=== PATIENT | female | born 1935 | race Caucasian/White ===

== ENCOUNTER 2017-02-18 07:00 | Inpatient (IN) | payer OTHER, MEDICARE ==
[~2017-02-18] VITALS: Ht 152.4 cm; Wt 53.1 kg
[2017-03-25] MEDS ORDERED: AMLODIPINE BESYL5 M1 PO (16:13)
[2017-03-25] MEDS ORDERED: CYMBALTA60 M1 PO (16:14)
[2017-03-25] MEDS ORDERED: FOSAMAX70 M1 PO (16:14)
--- NOTE | 2017-03-27 12:17 | Admission Core Measures ---
Admission Meds I reviewed the following Meds: Current Medications Sig/Giles Start time Last Medication Dose Stop Time Status Admin Acetaminophen 975 MG ONCE 03/27 NR (Tylenol) 03/27 2359 Cefazolin Sodium 2,000 MG ONCE 03/27 NR (Kefzol-Ancef Inj) 03/27 2359 Oxycodone HCl 10 MG ONCE 03/27 NR (Roxicodone) 03/27 2359 Acute Coronary Syndrome Inclusion Criteria ACS Diagnosis No Inpatient Core Measures LDL Reminder: If No, please order W/I first 24hr of stay Congestive Heart Failure Inclusion Criteria CHF Diagnosis No Cerebrovascular accident Inclusion Criteria CVA/TIA Diagnosis No Inpatient Core Measures Bedside Swallow Eval Reminder: If BSE failed, place ST order Antithrombotic Reminder: Order Antithrombotic Medication by end of day 2 Antithrombotic Reminder: Document Reason Antithrombotic Not ordered by end of day 2 AFIB/Flutter Reminder: If Present, add to problem list AFIB/Flutter Reminder: Order Anticoag Medication for pts with AFIB/Flutter Atherosclerosis Reminder: If Present, add to problem list LDL Reminder: If No, please order W/I first 24hr of stay PT Order Reminder: If No, please order Venous thromboembolism Inpatient Core Measures VTE Risk Factors: Age > 40, Surgery No [facility] VTE prophylaxis d/t No contraindications No VTE Pharm Prophylaxis d/t No contraindications Inclusion Criteria - Per Current guidelines, there needs to be overlap - treatment for the first 5 days of Warfarin therapy. - Parenteral Anticoagulation (IV or SC) needs to be - given along with Warfarin therapy. VTE Diagnosis No VTE Type NONE VTE Confirmed by (Test) NONE Problem List As ranked by this Provider includes Assessment & Plan 1. S/P total hip arthroplasty HOME MEDS Home Med List Alendronate Sodium (Fosamax) 70 MG TABLET 1 TAB PO QW OSTEOPOROSIS (Reported) Amlodipine Besylate 5 MG TABLET 1 TAB PO DAILY HTN (Reported) Duloxetine HCl (Cymbalta) 60 MG CAPSULE.DR 1 CAP PO DAILY PAIN (Reported)
[2017-03-27] MEDS ORDERED: ASPIRIN325 M2 PO (12:28)
[2017-03-27] MEDS ORDERED: PERCOCET 5-3251 EACH PO (12:28)
[2017-03-27] MEDS ORDERED: COLACE100 M1 PO (12:29)
[2017-03-27] MEDS ORDERED: MIRALAX17 G1 PO (12:29)
--- NOTE | 2017-03-27 12:33 | Patient Discharge Instructions ---
Discharge Instructions General Discharge Information You were seen/treated for: Right hip degenerative joint disease You had these procedures: Removal of previous ORIF and conversion to right total hip arthroplasty Watch for these problems: Significantly increased pain, difficulty with ambulation, or temperatures over 101 Increased redness or drainage from incision No bath, but you may shower: Yes Other wound care: Daily dry dressing change Special Instructions: See printed information booklet Diet Continue normal diet: Yes Activity Activity Self Limited: Yes Other activity limits: Ambulate using a walker as instructed by physical therapy No driving or operating heavy machinery until off all pain medications and okay with your surgeon Acute Coronary Syndrome Inclusion Criteria At DC or during hospital stay patient has or had the following: ACS DIAGNOSIS No Discharge Core Measures Meds if any: Prescribed or Continued at Discharge Meds if any: NOT Prescribed or Continued at Discharge Congestive Heart Failure Inclusion Criteria At DC or during hospital stay patient has or had the following: CHF DIAGNOSIS No Discharge Core Measures Meds if any: Prescribed or Continued at Discharge Meds if any: NOT Prescribed or Continued at Discharge Cerebrovascular accident Inclusion Criteria At DC or during hospital stay patient has or had the following: CVA/TIA Diagnosis No Discharge Core Measures Meds if any: Prescribed or Continued at Discharge Meds if any: NOT Prescribed or Continued at Discharge Venous thromboembolism Inclusion Criteria VTE Diagnosis No VTE Type NONE VTE Confirmed by (Test) NONE Discharge Core Measures - Per Current guidelines, there needs to be overlap - treatment for the first 5 days of Warfarin therapy. - If discharged on Warfarin prior to 5 days of - overlap therapy, the patient will need to be - assessed for post discharge needs including - *Post discharge parental anticoagulation - *Warfarin and/or parental anticoagulation education - *Follow up date to check INR post discharge At least 5 days overlap therapy as Inpatient No Meds if any: Prescribed or Continued at Discharge Note: Overlap Therapy is Warfarin and Anticoagulant Meds if any: NOT Prescribed or Continued at Discharge
--- NOTE | 2017-03-27 12:37 | Surgical Discharge Summary ---
Visit Information Visit Dates Admission Date: 03/27/17 Discharge Date: 03/30/17 History of Present Illness Chief Complaint: Right hip pain/degenerative joint disease Surgical History Pertinent Surgical History: PRIOR RT HIP ORIF Review of Systems: Refer to admitting H&P with regards to past medical history and review of systems Hospital Course Course Attending Physician: ANUSHKA KELLY MD Primary Care Phys[facility]: The patient was admitted on 03/27/2017. Later that day she was brought to the operating theater where she underwent a removal of previous hardware and the right total hip arthroplasty. Postoperative patient progressed as expected, her pain was well managed, and she worked with physical therapy. She was transfused 1 unit prbc on post-op day#1 for acute yanna-op blood loss anemia, which she was relatively asymptomatic with, and improved the next day after the transfusion. Patient was started on aspirin twice daily for blood clot risk reduction. Laboratory studies and vital signs were stable. The patient was discharged with an uneventful hospital course to a short term rehab facility on post-op day#3. Allergies: Coded Allergies: No Known Allergies (03/25/17) Significant Procedures: Removal of previous right hip hardware and right hip total arthroplasty Disposition Summary Disposition Principal Diagnosis: Degenerative joint disease and right hip pain Additional Diagnosis: acute yanna-operative blood loss anemia, which resolved after transfusing 1u prbc on post-op day#2 Discharge Disposition: SNF Discharge Instructions General Discharge Information Code Status: Full Code Patient's Diet: Regular diet Patient's Activity: Weightbearing as tolerated Follow-Up Instructions/Appts: Refer to discharge instructions Call the office to be seen in 6 weeks or earlier if needed Medications at Discharge Discharge Medications: Continue taking these medications: Amlodipine Besylate (Amlodipine Besylate) 5 MG TABLET 1 Tablet ORAL DAILY Duloxetine HCl (Cymbalta) 60 MG CAPSULE.DR 1 Capsule ORAL DAILY Alendronate Sodium (Fosamax) 70 MG TABLET 1 Tablet ORAL Once a Week Instructions: in the morning, at least 30 minutes before the first food, beverage, or medication of the day Comments: EVERY SATURDAY Start taking the following new medications: Oxycodone HCl/Acetaminophen (Percocet 5-325 MG Tablet) 5 MG-325 MG TABLET 1-2 Tablet ORAL EVERY 4-6 HOURS as needed for PAIN Qty = 1 No Refills Aspirin (Aspirin*) 325 MG TABLET 1 Tablet ORAL TWICE DAILY Qty = 1 No Refills Instructions: TAKE FOR 28 DAYS Docusate Sodium (Colace) 100 MG CAPSULE 1 Capsule ORAL TWICE DAILY Qty = 1 No Refills Instructions: TAKE FOR 7 DAYS Polyethylene Glycol 3350 (Miralax) 17 GRAM POWD.PACK 1 Packet ORAL DAILY Qty = 1 No Refills Instructions: dissolve in water TAKE FOR 7 DAYS Copies To: JANELLE GUTIERREZ,KINA
--- NOTE | 2017-03-27 15:38 | Operative Report ---
Operative/Inv Procedure Report Surgery Date: 03/27/17 Name of Procedure: Right total hip conversion Pre-Operative Diagnosis: Failed right hip ORIF Post-Operative Diagnosis: Same Estimated Blood Loss: 500 Surgeon/Cath Lab Nurse: ROBIN GUTIERREZ,ANUSHKA Peter Anesthesia: block Operative/Procedure Note Note: Description of procedure: The patient was taken to the operating room and positively identified. After induction of spinal anesthesia and administration of appropriate preoperative antibiotics she was positioned supine on the operating room table and all bony prominences well-padded. The right lower extremity was then prepped and draped in the usual sterile fashion. A modified Ervin approach was made to the right hip. This was carried down through skin and subcutaneous tissue to the level of the fascia. Meticulous hemostasis was maintained with Bovie cautery. The fascia was opened sharply exposing the gluteus medius muscle. The anterior one third of gluteus medius was taken down off the greater trochanter with use of Bovie cautery. There was abundant heterotopic ossification located anterior to the trochanteric region. This was carefully dissected and removed with the use of an osteotome and a rongeur. Exposure continued until the femoral neck and head could be seen anteriorly. Attention was then turned to the retained [employer] IMHS nail. The proximal aspect of the nail had overgrown. Utilizing a small curet the tip of the nail was identified. Utilizing the proper [employer] instrument the locking bolt was unscrewed. At this point attention was then turned to the lag screw. The lateral end of the lag screw head completely overgrown with bone and could not be found. The hip was dislocated and the tip of the lag screw was identified in the femoral head. A Steinmann pin was then passed retrograde down the screw and tapped out the lateral cortex of the femur. The pin was then identified laterally and the cortical bone that had overgrown the end of the screw was removed with the use of a rongeur and a high-speed luis. The lag screw was then backed out with the appropriate instrument. The distal locking screw was identified without difficulty and removed. Bone was cleared from the tip of the trochanter and the nail itself was backed out. Attention was then turned to the acetabulum. After appropriate placement of retractors the acetabulum was exposed. Soft tissue was cleared from the acetabular margin and notch. Overhanging osteophytes removed and the teardrop was exposed. The acetabulum was then sequentially reamed to accept a 54 mm Lucas hemispherical solid back shell. This was impacted into place in appropriate position and fitted with a 36 mm 0 Trident X3 polyethylene insert. Attention was then turned to the proximal femur. Due to abundant heterotopic ossification the proximal femur was trimmed with the use of a oscillating saw. The canal was then again located and bone cleared laterally at the tip of the trochanter. The canal was then prepared for a [place] holiness modular conical distal stem. It was reamed up to a size 18 mm. A Lucas holiness modular 155 mm x 18 mm conical distal stem was then impacted into place. The proximal femur was then prepared to accept a 21 mm +10 cone body. This was trialed for leg length and stability. The trial proximal body was removed and the final body was impacted into place. The torque bolt was tightened to specification. The trunnion was cleaned and fit with a 36 mm +0 Biolox delta ceramic femoral head. The hip was reduced and then copiously irrigated with sterile saline. A medium Hemovac drain was left in a subfascial position. The abductor mechanism and fascial layer were closed with interrupted #1 Vicryl sutures. The skin is approximated with interrupted 2-0 Vicryl and closed with altaf. A sterile dressing was applied the patient was awakened and taken to recovery room in satisfactory condition.
--- NOTE | 2017-03-27 16:17 | RADIOLOGY REPORT ---
EXAMINATION: XR HIP, RIGHT CLINICAL INFORMATION: Status post ORIF, right hip replacement COMPARISON: None TECHNIQUE: Two views of the right hip. FINDINGS: Acetabular and femoral component of the hip replacement in position. Surgical drain in place. Air in the soft tissues from the surgery. Surgical skin clips at the lateral side of the hip. IMPRESSION: Status post right hip replacement.
--- NOTE | 2017-03-27 16:37 | NUR ---
PHYSICAL THERAPY: PATIENT HAS NOT YET ARRIVED TO THE FLOOR, SPOKE WITH [facility] WHO STATES SHE IS STILL IN THE [facility] AT THIS TIME, ANTICIPATING TO MOVE TO ROOM 219-1; SPOKE WITH RECIEVING ON RN TO NOTIFY THEM P.T. WILL NOT BE HERE WHEN PATIENT ARRIVES; WILL BE SEEN TOMORROW A.M.
[2017-03-27 17:10] VITALS: BP 120/58
--- NOTE | 2017-03-27 17:32 | PN- Orthopedic ---
Subjective Subjective: POC S/P REMOVAL OF HARDWARE RIGHT HIP/RIGHT SHEMAR NO PAIN COMPLAITNS NOW DENEIS CP, SOB, NO N+V SITTING UP IN BED SLOW TO RESPOND, LIKELY DUE TO CLEARING ANESTHESIA Objective Vital Signs and I&Os Intake & Output 03/27 1600 03/27 0800 03/27 0000 03/26 1600 03/26 0803/26 0000 Intake Total Output Total Balance Patient 117 lb Weight Physical Exam: CV: RRR LUNGS: CLEAR ABD: SOFT, +BS EXT: THIGH SOFT DRSG DRY DISTAL CMS INTACT NEHA: SEROSANGUINOUJS DRAINAGE ALVA: CLEAR URINE Assessment/Plan Assessment/Plan ORTHO STABLE PLAN BEDREST TONIGHT ALVA TO GRAVITY ADVANCE DIET TOLERATED BOWEL REGIME ASA BID FOR DVT PROPHYLAXIS SNF PLANNING Core Measures/Miscellaneous Venous Thromboembolism VTE Risk Factors: Age > 40, Surgery VTE Contraindications: No Contraindications VTE Diagnosis: No VTE Type: NONE VTE Confirmed by (Test): NONE Beta Eder Is Beta Eder a Home Med? No Antibiotics Is Patient on Antibiotics? Yes If Yes: prophylaxis
[2017-03-27 19:05] VITALS: BP 100/60
[2017-03-27 21:06] VITALS: BP 102/60
[2017-03-27 22:48] VITALS: BP 102/60
[2017-03-28 03:01] VITALS: BP 118/60
[2017-03-28 06:06] VITALS: BP 100/58
--- NOTE | 2017-03-28 07:41 | PN- Orthopedic ---
Subjective Subjective: Pt. states she is comfortable. Was receiving IV Tylenol Taking liquids without nausea. Objective Vital Signs and I&Os Vital Signs Date Time Temp Pulse Resp B/P B/P Pulse O2 O2 Flow FiO2 Mean Ox Delivery Rate 03/28 0606 98.1 80 20 100/58 96 Room Air 03/28 0301 98.7 84 20 118/60 94 Room Air 03/27 2248 97.9 79 20 102/60 96 Room Air 03/27 2106 98.0 69 20 102/60 95 Room Air 03/27 2019 Room Air Room Air 03/27 1905 98.1 75 20 100/60 93 Room Air 03/27 1752 Room Air Room Air 03/27 1710 97.6 73 16 120/58 92 Room Air Intake & Output 03/28 0800 03/28 0000 03/27 1600 03/27 0800 03/27 0000 03/26 1600 Intake Total 960 1115 Output Total 430 775 Balance 530 340 Intake, IV 720 375 Intake, Oral 240 740 Output, 80 125 Drainage Output, Urine 350 650 Patient 117 lb Weight Weight Reported by Patient Measurement Method Alert, orineted, appropriate, no distress Lungs clear bilat. Heart regular Abdomen soft, benign R hip with dressing over D/C/I. Hemovac in place, draining serosang. fluid, recorded as 80 cc over night Intact neurovascular check to RLE, good distal perfusion and sensation. Assessment/Plan Assessment/Plan s/p R total hip conversion for failed R hip ORIF POD#1 Stable hemodynamics, drain output as expected. Making adequate urine, will hep lock IVF R Hip exam as expected, no signs of infection,neurovascular intact Good pain control so far with IV Tylenol.Will add PO Tylenol for pain once completed IV Tylenol.Has Oxycodone available prn for pain. Awaiting mobilization with PT Labs are pending for this morning, will follow results. Anticipate d/c to STR in 2 to 3 days. Core Measures/Miscellaneous Venous Thromboembolism VTE Risk Factors: Age > 40, Surgery VTE Contraindications: No Contraindications VTE Diagnosis: No VTE Type: NONE VTE Confirmed by (Test): NONE Beta Eder Is Beta Eder a Home Med? No Antibiotics Is Patient on Antibiotics? Yes If Yes: prophylaxis
[2017-03-28 07:55] LABS: ABSOLUTE BASOPHIL COUNT 0 /CUMM (0.0-0.2); ABSOLUTE EOSINOPHIL COUNT 0 /CUMM (0.0-0.7); ABSOLUTE GRANULOCYTE CT 8.5 /CUMM (1.4-6.5); ABSOLUTE LYMPH COUNT 0.8 /CUMM (1.2-3.4); ABSOLUTE MONOCYTE COUNT 0.3 /CUMM (0.10-0.60); BASOPHIL % 0 % (0.0-2.0); EOSINOPHIL % 0.3 % (0-5); HEMATOCRIT 22.6 % (37-47); MEAN CORPUSCULAR HGB 31.4 PG (27.0-31.0); MEAN CORPUSCULAR HGB CONC 34.1 G/DL (33.0-37.0); MEAN CORPUSCULAR VOLUME 92.2 FL (81.0-99.0); MEAN PLATELET VOLUME 8.3 FL (7.4-10.4); PLATELET COUNT 172 /CUMM (130-400); RBC DISTRIBUTION WIDTH 15.2 % (11.5-14.5); RED BLOOD CELL CT 2.45 /CUMM (4.20-5.40); WHITE BLOOD CELL COUNT 9.6 /CUMM (4.8-10.8)
[2017-03-28 08:41] LABS: GRANULOCYTE % 88.1 % (42.2-75.2)
--- NOTE | 2017-03-28 10:48 | NUR ---
NURSING NOTE: PATIENT BLOOD WORK CAME BACK, H&H 7&22.4. SURGICAL PA NOTIFIED THIS RN THAT PATIENT WILL NOT BE TRANSFUSED AT THIS TIME DUE TO PATIENT HAVING CHRONIC ANEMIA. THIS RN WILL MONITOR FOR ANY S/S OF CHANGE. PATIENT'S VS WILL BE MONITORED Q4. WILL CONTINUE TO MONITOR.
[2017-03-28 11:36] VITALS: BP 112/58
[2017-03-28 14:22] VITALS: BP 112/60
[2017-03-28 16:01] VITALS: BP 140/64
--- NOTE | 2017-03-28 16:36 | NUR ---
NURSING NOTE: PATIENT NOTED TO BE MUCH MORE CONFUSED THAN THIS AM. PATIENT TRYING TO PULL ALVA CATHETER OUT SO SHE CAN PEE. TRYING TO PULL HEMOVAC OUT BECAUSE SHE FEELS THAT WILL HELP HER PEE. SURGICAL PA SAIRA OLMSTEAD NOTIFIED OF CHANGE IN MENTAL STATUS. VSS. STAT BLOODWORK TO BE DRAWN. WILL CONTINUE TO MONITOR.
--- NOTE | 2017-03-28 16:40 | NUR ---
NURSING NOTE: MST CALLED THIS RN TO THE PATIENT'S ROOM, WITHIN MINUTES OF THIS RN CALLING THE SURGICAL PA ABOUT MENTAL STATUS CHANGE, PATIENT PULLED HEMOVAC OUT OF SURGICAL SITE TO RIGHT HIP. DRSG STILL IN PLACE CDI. BLOOD WORK CONTINUING TO BE DRAWN. PATIENT RE-ORIENTED TO TIME AND PLACE. PATIENT REPOSITIONED IN BED. SURGICAL PA NOTIFIED OF HEMOVAC BEING PULLED OUT. WILL CONTINUE TO MONITOR.
[2017-03-28 17:39] LABS: ABSOLUTE BASOPHIL COUNT 0 /CUMM (0.0-0.2); ABSOLUTE EOSINOPHIL COUNT 0 /CUMM (0.0-0.7); ABSOLUTE LYMPH COUNT 1.9 /CUMM (1.2-3.4); BASOPHIL % 0.1 % (0.0-2.0); GRANULOCYTE % 74.7 % (42.2-75.2)
[2017-03-28 17:46] LABS: ABSOLUTE MONOCYTE COUNT 0.5 /CUMM (0.10-0.60); EOSINOPHIL % 0.2 % (0-5); HEMATOCRIT 21.8 % (37-47); MEAN CORPUSCULAR HGB 30.9 PG (27.0-31.0); MEAN CORPUSCULAR HGB CONC 33.6 G/DL (33.0-37.0); MEAN CORPUSCULAR VOLUME 92.1 FL (81.0-99.0); PLATELET COUNT 169 /CUMM (130-400); RED BLOOD CELL CT 2.37 /CUMM (4.20-5.40); WHITE BLOOD CELL COUNT 9.4 /CUMM (4.8-10.8)
--- NOTE | 2017-03-28 18:00 | NUR ---
YNURSING NOTE: FAMILY UPDATED AND NOTIFIED ABOUT PATIENT'S NEW CONFUSION, SITTER AND BLOOD TRANSFUSION. FAMILY UNDERSTANDING AND APPRECIATIVE. THIS RN ALSO SPOKE WITH SURIGICAL PA ABOUT PATIENT REMOVING THE HEMOVAC, PA STATED IT WAS OK AND TO JUST WATCH THE DRESSING FOR EXCESSIVE SATURATION. KEEP EXTRA PRESSURE ON IT.
[2017-03-28 22:34] VITALS: BP 122/72
[2017-03-29 07:42] VITALS: BP 124/69
[2017-03-29 08:03] LABS: ABSOLUTE BASOPHIL COUNT 0 /CUMM (0.0-0.2); ABSOLUTE EOSINOPHIL COUNT 0 /CUMM (0.0-0.7); ABSOLUTE LYMPH COUNT 1.8 /CUMM (1.2-3.4); ABSOLUTE MONOCYTE COUNT 0.5 /CUMM (0.10-0.60); BASOPHIL % 0.2 % (0.0-2.0); EOSINOPHIL % 0.1 % (0-5); GRANULOCYTE % 81.4 % (42.2-75.2); MEAN CORPUSCULAR HGB 30.8 PG (27.0-31.0); MEAN CORPUSCULAR HGB CONC 34.2 G/DL (33.0-37.0); MEAN CORPUSCULAR VOLUME 90.1 FL (81.0-99.0); MEAN PLATELET VOLUME 8.1 FL (7.4-10.4); PLATELET COUNT 174 /CUMM (130-400); RBC DISTRIBUTION WIDTH 15.8 % (11.5-14.5); WHITE BLOOD CELL COUNT 12.2 /CUMM (4.8-10.8)
[2017-03-29 08:30] LABS: RED BLOOD CELL CT 3.11 /CUMM (4.20-5.40)
--- NOTE | 2017-03-29 09:07 | PN- Orthopedic ---
Subjective Subjective: No complaints. Transfused 1u prbc yesterday, which she recalls but denies symptoms. No dizziness, no shortness of breath, and no chest pains. She was somewhat confused yesterday, requiring a sitter, but appears to be better this morning. She has not been receiving narcotics. Tolerating diet. No nausea. Voiding well. Unsure of last bm. Anticipates discharge to rehab tomorrow. Objective Vital Signs and I&Os Vital Signs Date Time Temp Pulse Resp B/P B/P Pulse O2 O2 Flow FiO2 Mean Ox Delivery Rate 03/29 0742 98.6 92 18 124/69 96 Room Air 03/28 2234 98.6 92 18 122/72 96 Room Air 03/28 1651 96 Room Air 03/28 1601 97.4 90 18 140/64 98 Room Air 03/28 1457 Room Air Room Air 03/28 1422 98.0 86 20 112/60 96 Room Air 03/28 1136 98.1 79 20 112/58 98 Room Air Intake & Output 03/29 1600 03/29 0800 03/29 0000 03/28 1600 03/28 0800 03/28 0000 Intake Total 240 131 375 6441 Output Total 1400 930 300 430 775 Balance -1160 -930 600 530 340 Intake, IV 720 375 Intake, Oral 240 900 240 740 Output, 130 80 125 Drainage Output, Urine 1400 800 300 350 650 Patient 117 lb Weight Weight Reported by Patient Measurement Method Physical Exam: General - alert. oriented to person, place, and situation. "today is march 26", "i had surgery 1 week ago". Lungs - clear bilaterally. no w/r/r. Cardiac - s1s2 Abdomen - soft. nondistended. nontender. Extremities - warm bilaterally. right hip dressing changed. incision well approximated with altaf. no hematoma or drains. no erythema or exudates. Current Medications: Current Medications Sig/Giles Start time Last Medication Dose Route Stop Time Status Admin Acetaminophen 325 MG Q6P PRN 03/28 0900 AC PO Acetaminophen 1,000 MG Q8H 03/28 0300 DC 03/28 IV 03/28 1101 1057 Alendronate Sodium 70 MG QSAT 03/30 0700 AC PO Amlodipine Besylate 5 MG DAILY 03/28 1000 AC 03/28 PO 0844 Aspirin 325 MG BID 03/270 AC 03/28 PO 2036 Docusate Sodium 100 MG BID 03/28 2200 AC 03/28 PO 203 Docusate Sodium 100 MG DAILY 03/28 1000 DC 03/28 PO 0844 Duloxetine HCl 60 MG DAILY 03/28 1000 AC 03/28 PO 0844 Morphine Sulfate 2 MG Q3P PRN 03/27 1730 DC IV Omeprazole 20 MG DAILY AC 03/28 0700 AC 03/29 PO 0528 Ondansetron HCl 4 MG Q6P PRN 03/27 1730 AC IV Oxycodone HCl 5 MG Q4P PRN 03/27 1730 DC PO Oxycodone HCl 10 MG Q4P PRN 03/27 1730 DC PO Polyethylene Glycol 17 GM DAILY 03/28 1000 AC 03/28 PO 0844 Tramadol HCl 50 MG Q4P PRN 03/28 1800 AC PO Results Last 48 Hours of Labs: Laboratory Tests 03/29 03/28 0726 1700 Chemistry Sodium (137 - 145 mmol/L) 138 133 L Potassium (3.5 - 5.1 mmol/L) 3.8 4.3 Chloride (98 - 107 mmol/L) 105 101 Carbon Dioxide (22 - 30 mmol/L) 24 23 Anion Gap (5 - 16) 9 9 BUN (7 - 17 mg/dL) 15 22 H Creatinine (0.5 - 1.0 mg/dL) 0.7 0.9 Estimated GFR (>60 ml/min) > 60 60 BUN/Creatinine Ratio (7 - 25 %) 21.4 24.4 Hematology CBC w Diff NO MAN DIFF REQ NO MAN DIFF REQ WBC (4.8 - 10.8 /CUMM) 12.2 H 9.4 RBC (4.20 - 5.40 /CUMM) 3.11 L 2.37 L Hgb (12.0 - 16.0 G/DL) 9.6 L 7.3 *L Hct (37 - 47 %) 28.0 L 21.8 L MCV (81.0 - 99.0 FL) 90.1 92.1 MCH (27.0 - 31.0 PG) 30.8 30.9 RDW (11.5 - 14.5 %) 15.8 H 15.0 H Plt Count (130 - 400 /CUMM) 174 169 MPV (7.4 - 10.4 FL) 8.1 8.0 Gran % (42.2 - 75.2 %) 81.4 H 74.7 Lymphocytes % (20.5 - 51.1 %) 14.4 L 20.0 L Monocytes % (1.7 - 9.3 %) 3.9 5.0 Eosinophils % (0 - 5 %) 0.1 0.2 Basophils % (0.0 - 2.0 %) 0.2 0.1 Absolute Granulocytes (1.4 - 6.5 /CUMM) 10.0 H 7.0 H Absolute Lymphocytes (1.2 - 3.4 /CUMM) 1.8 1.9 Absolute Monocytes (0.10 - 0.60 /CUMM) 0.5 0.5 Absolute Eosinophils (0.0 - 0.7 /CUMM) 0 0 Absolute Basophils (0.0 - 0.2 /CUMM) 0 0 PUBS MCHC (33.0 - 37.0 G/DL) 34.2 33.6 05/11 0649 Chemistry Sodium (137 - 145 mmol/L) 134 L Potassium (3.5 - 5.1 mmol/L) 4.7 Chloride (98 - 107 mmol/L) 101 Carbon Dioxide (22 - 30 mmol/L) 22 Anion Gap (5 - 16) 11 BUN (7 - 17 mg/dL) 19 H Creatinine (0.5 - 1.0 mg/dL) 0.8 Estimated GFR (>60 ml/min) > 60 BUN/Creatinine Ratio (7 - 25 %) 23.8 Hematology CBC w Diff NO MAN DIFF REQ WBC (4.8 - 10.8 /CUMM) 9.6 RBC (4.20 - 5.40 /CUMM) 2.45 L Hgb (12.0 - 16.0 G/DL) 7.7 L Hct (37 - 47 %) 22.6 L MCV (81.0 - 99.0 FL) 92.2 MCH (27.0 - 31.0 PG) 31.4 H RDW (11.5 - 14.5 %) 15.2 H Plt Count (130 - 400 /CUMM) 172 MPV (7.4 - 10.4 FL) 8.3 Gran % (42.2 - 75.2 %) 88.1 H Lymphocytes % (20.5 - 51.1 %) 8.8 L Monocytes % (1.7 - 9.3 %) 2.8 Eosinophils % (0 - 5 %) 0.3 Basophils % (0.0 - 2.0 %) 0 L Absolute Granulocytes (1.4 - 6.5 /CUMM) 8.5 H Absolute Lymphocytes (1.2 - 3.4 /CUMM) 0.8 L Absolute Monocytes (0.10 - 0.60 /CUMM) 0.3 Absolute Eosinophils (0.0 - 0.7 /CUMM) 0 Absolute Basophils (0.0 - 0.2 /CUMM) 0 PUBS MCHC (33.0 - 37.0 G/DL) 34.1 Assessment/Plan Assessment/Plan This 82 year old white female with hx htn, oa, hx tia, depression, anemia, is POD#2 s/p right total hip conversion from failed right hip ORIF, s/p transfusion of 1u prbc yesterday for acute yanna-op blood loss anemia with associated confusion that appears to be improved today tolerating diet ultram / tylenol prn pain dressing changed asa bid f/u labs continue PT likely d/c to STR tomorrow will d/w Core Measures/Miscellaneous Venous Thromboembolism VTE Risk Factors: Age > 40, Surgery VTE Contraindications: No Contraindications VTE Diagnosis: No VTE Type: NONE VTE Confirmed by (Test): NONE Beta Eder Is Beta Eder a Home Med? No Antibiotics Is Patient on Antibiotics? Yes If Yes: prophylaxis
[2017-03-29 12:00] VITALS: BP 102/60
[2017-03-29 15:09] VITALS: BP 118/70
[2017-03-29 22:35] VITALS: BP 104/60
[2017-03-30 02:16] VITALS: BP 118/60
[2017-03-30 07:23] VITALS: BP 122/68
--- NOTE | 2017-03-30 08:40 | PN- Orthopedic ---
Subjective Subjective: COMFORTABLE THIS AM SITTING UP IN BED EATING BREAKFAST DENIES CP, SOB, NO N+V WITH DIET Objective Vital Signs and I&Os Vital Signs Date Time Temp Pulse Resp B/P B/P Pulse O2 O2 Flow FiO2 Mean Ox Delivery Rate 03/30 0829 96 Room Air 03/30 0723 97.9 80 18 122/68 98 Room Air 03/30 0216 97.9 80 18 118/60 96 Room Air 03/29 2235 98.2 85 20 104/60 94 Room Air 03/29 2027 99 Room Air 03/29 1509 97.9 94 18 118/70 96 Room Air 03/29 1200 9.4 86 20 102/60 96 Room Air 03/29 1149 92 124/69 03/29 0921 98 Room Air Room Air Intake & Output 03/30 1600 03/30 0800 03/30 0000 03/29 1600 03/29 0800 03/29 0000 Intake Total 120 610 240 Output Total 250 931 758 5239 930 Balance -250 -280 -190 -1160 -930 Intake, IV 10 Intake, Oral 120 600 240 Number 0 Bowel Movements Output, 130 Drainage Output, Urine 250 065 895 9263 800 Physical Exam: CV: RRR LUNGS: CLEAR ABD: SOFT, +BS EXT: THIGH SOFT NO CALF TENDERNESS BILAT DISTAL CMS GROSSLY INTACT Assessment/Plan Assessment/Plan ORTHO STABLE PLAN SNF AFTER BM ELIQUIS BID FOR DVT PROPHYLAXIS Core Measures/Miscellaneous Venous Thromboembolism VTE Risk Factors: Age > 40, Surgery VTE Contraindications: No Contraindications VTE Diagnosis: No VTE Type: NONE VTE Confirmed by (Test): NONE Beta Eder Is Beta Eder a Home Med? No Antibiotics Is Patient on Antibiotics? Yes If Yes: prophylaxis
[2017-03-30 08:41] LABS: ABSOLUTE BASOPHIL COUNT 0 /CUMM (0.0-0.2); ABSOLUTE EOSINOPHIL COUNT 0.1 /CUMM (0.0-0.7); ABSOLUTE GRANULOCYTE CT 5.6 /CUMM (1.4-6.5); ABSOLUTE LYMPH COUNT 1.4 /CUMM (1.2-3.4); ABSOLUTE MONOCYTE COUNT 0.4 /CUMM (0.10-0.60); BASOPHIL % 0.2 % (0.0-2.0); GRANULOCYTE % 74.2 % (42.2-75.2); HEMATOCRIT 26.5 % (37-47); MEAN CORPUSCULAR HGB 30.9 PG (27.0-31.0); MEAN PLATELET VOLUME 8.4 FL (7.4-10.4); PLATELET COUNT 163 /CUMM (130-400); RBC DISTRIBUTION WIDTH 16.3 % (11.5-14.5); RED BLOOD CELL CT 2.91 /CUMM (4.20-5.40); WHITE BLOOD CELL COUNT 7.5 /CUMM (4.8-10.8)
[2017-03-30 12:55] VITALS: BP 122/68
== END 2017-03-30 13:45 | DRG 470 ==
LOC: 2NB 03-27 01:38 → SDA 03-27 01:38 → ENRESERV 03-27 15:36 → CMPBEDREQ 03-27 15:52 → 2NB 03-27 16:53 → ENPENDDIS 03-30 10:27 → 2NB 03-30 13:45
PROVIDERS: Physician Assistant; Physician Assistant Surgical; ADMIT Orthopaedic Surgery
PROC: 0QP604Z Removal of Internal Fixation Device from Right Upper Femur, Open Approach (ICD-10-PCS; principal; 2017-03-27)
PROC: 0SR904A Replacement of Right Hip Joint with Ceramic on Polyethylene Synthetic Substitute, Uncemented, Open Approach (ICD-10-PCS; principal; 2017-03-27)
PROC: 30233N1 Transfusion of Nonautologous Red Blood Cells into Peripheral Vein, Percutaneous Approach (ICD-10-PCS; 2017-03-28)
DX: M16.11 Unilateral primary osteoarthritis, right hip (principal); D62 Acute posthemorrhagic anemia; I10 Essential (primary) hypertension; Z87.81 Personal history of (healed) traumatic fracture; Z87.891 Personal history of nicotine dependence; Z85.3 Personal history of malignant neoplasm of breast; Z86.73 Personal history of transient ischemic attack (TIA), and cerebral infarction without residual deficits
CPT/HCPCS: 2NSBP; 36415; 73502-RT; 82436; 86920; 88304; 97110-GO; 97116-GO; 97161-GP; 97530-GO; J0131; J0690; J2405; J7042; P9016

== ENCOUNTER 2017-04-17 12:25 | Emergency (ER) | payer OTHER, MEDICARE ==
[~2017-04-17] VITALS: Ht 157.5 cm; Wt 55.3 kg
[~2017-04-17 12:25] MED LIST: AMLODIPINE BESYL5 M1 PO; ASPIRIN325 M2 PO; COLACE100 M1 PO; CYMBALTA60 M1 PO; FOSAMAX70 M1 PO; MIRALAX17 G1 PO; PERCOCET 5-3251 EACH PO
--- NOTE | 2017-04-17 12:41 | ED UPPER/LOWER EXTREMITY COMPL ---
History of Present Illness General Chief Complaint: Fall Stated Complaint: "PER EMS FALL" Source: patient, family Exam Limitations: no limitations Vital Signs & Intake/Output Vital Signs & Intake/Output Vital Signs Date Time Temp Pulse Resp B/P B/P Pulse O2 O2 Flow FiO2 Mean Ox Delivery Rate 04/17 1500 97.4 78 18 122/59 95 Room Air 04/17 1334 97 Room Air 04/17 1239 96.5 81 18 121/61 97 Room Air ED Intake and Output 04/18 0000 04/17 1200 Intake Total 0 Output Total Balance 0 Intake, IV 0 Patient 122 lb Weight Weight Estimated Measurement Method Allergies Coded Allergies: No Known Allergies (03/25/17) Reconcile Medications Alendronate Sodium (Fosamax) 70 MG TABLET 1 TAB PO QW OSTEOPOROSIS (Reported) in the morning, at least 30 minutes before the first food, beverage, or medication of the day Amlodipine Besylate 5 MG TABLET 1 TAB PO DAILY HTN (Reported) Aspirin (Aspirin*) 325 MG TABLET 1 TAB PO BID BLOOD THINNER TAKE FOR 28 DAYS Duloxetine HCl (Cymbalta) 60 MG CAPSULE.DR 1 CAP PO DAILY PAIN (Reported) Oxycodone HCl/Acetaminophen (Percocet 5-325 MG Tablet) 5 MG-325 MG TABLET 1-2 TAB PO Q4-6 PRN PAIN Triage Note: RECEIVED 82 YO FEMALE BIBA FROM [facility] S/P FALL YESTERDAY. XRAY DONE, PT SENT FOR U/S, R/O DVT. PT S/P RIGHT HIP REPLACEMENT 03/27/17 AND WAS SENT TO [place] FOR REHAB. PT WAS TO BE D/C'S TODAY AND SENT HOME. PT STATES SHE WAS REACHING FOR SOMETHING WHEN SHE FELL. RIGHT LOWER EXTREMITY SWELLING NOTED. PT USES WALKER FOR AMBULATION Triage Nurses Notes Reviewed? yes Onset: Abrupt Duration: constant Timing: recent history Severity: mild Severity Numbers: 3 HPI: Patient is a 82-year-old female with a recent hip surgery performed by Dr. 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, in which patient currently resides in short-term rehabilitation facility where patient suffered a mechanical fall yesterday in which she was in a standing position reaching for her walker which she fell forward denies any preceding episode of lightheaded sensation or dizziness patient states that she had no traumatic injury or pain after the fall was to staff helped her up patient has been able to ambulate with a walker since with pain to the right leg and which she states that x-rays OF THE RIGHT HIP were negative for acute fractures IN which it is noted through patient's records on arrival that the impression of the hip x-ray yesterday was intact hip arthroplasty healing fractures of the right pubic rami dictated by Carlos Enrique BENSON Patient was brought in by ambulance for concerns of right lower extremity swelling and concerns of DVT rule out Patient currently denies any pain at rest. Denies any fever chills shortness of breath cough hemoptysis or pain denies any neck pain or back pain (ALEXANDER BRIONES) Past History Travel History Traveled to [place] past 21 day No Medical History Any Pertinent Medical History? 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 No (ALEXANDER BRIONES) Review of Systems Review of Systems Constitutional: Reports: no symptoms. EENTM: Reports: no symptoms. Respiratory: Reports: no symptoms. Cardiovascular: Reports: see HPI, peripheral edema. Gastrointestinal/Abdominal: Reports: no symptoms. Genitourinary: Reports: no symptoms. Musculoskeletal: Reports: see HPI. Skin: Reports: see HPI. Neurological/Psychological: Reports: no symptoms. Hematologic/Endocrine: Reports: no symptoms. Immunological: Reports: no symptoms. All Other Systems: Reviewed and Negative (ALEXANDER BRIONES) Physical Exam Physical Exam General Appearance: no apparent distress, alert, comfortable Neurologic/Tendon: normal sensation, normal motor functions, normal tendon functions, responds to pain, no evidence tendon injury, no pulse deficit Skin: intact Comments: Well-developed well-nourished person in no acute distress HEENT: Normal EENT exam, Neck: Supple, no lymphadenopathy, normal range of motion without pain or tenderness No central spinous tenderness Back: Nontender, no CVA tenderness. Cardiovascular: Regular rate and rhythms no murmurs rubs or gallops, normal JVP Respiratory: Chest nontender. No respiratory distress.breath sounds clear to auscultation bilaterally Abdomen: Soft, nontender nondistended, no appreciable organomegaly. Normal bowel sounds. No ascites Extremities right knee nontender full active range of motion Right ankle normal inspection nontender full active range of motion Right lower extremity +1 pitting edema pedal pulse intact +2, dermatomes intact Neuro: Alert oriented x3, motor sensory normal, Skin: No appreciable rash on exposed skin, skin is warm and dry. Psych: Mood and affect is normal, memory and judgment is normal. Diagram Legs Front/Back 1) Noted incisional scar well-healing no active discharge no surrounding erythema or warmth. Patient able to perform straight leg raise Mild inferior swelling and ecchymosis noted to the incision scar 2) Noted ecchymosis and swelling and point tenderness (ALEXANDER BRIONES) Progress Differential Diagnosis: arterial insufficiency, cellulitis, CHF, compartment syndrome, contusion, dislocation, DVT, fracture, septic arthritis, sprain, tendon injury Plan of Care: Orders Procedure Date/time Status US-EXT BILAT VENOUS DOPPLER 04/17 1255 Active Patient's right lower extremities were neurovascularly intact. Patient does show concerns of a hematoma to the right lower tib-fib region x-rays will be obtained ultrasound will be obtained to rule out DVT. Patient is resting comfortably at bedside No osseous injury noted on x-ray findings from where patient was symptomatically point tender and hematoma site After x-ray and ultrasound was resulting showing no concerns of DVT or fracture patient then was ambulated with a walker with supervision and noted to have normal steady gait Discussed disposition plan with ECF who will accept patient to return back Discussed disposition plan with DR. RAI AND PT'S SON who agrees (ALEXANDER BRIONES) Diagnostic Imaging: Viewed by Me: Radiology Read, Ultrasound. Radiology Impression: no fracture Comments: PATIENT: DG ROWELL PRESENT AGE: 82 PATIENT ACCOUNT NO: [id number] : 34 LOCATION: [facility] ([place]) ORDERING PHYSICIAN: ALEXANDER MCKINNEY SERVICE DATE: 04/17/17-1255 EXAM TYPE: US - US-EXT BILAT VENOUS DOPPLER EXAMINATION: US TRIPLEX OF LOWER EXTREMITIES, BILATERAL CLINICAL INFORMATION: Bilateral leg swelling. History of right hip surgery 03/27/2017 COMPARISON: None TECHNIQUE: Color-flow triplex imaging with spectral analysis and compression Doppler were performed on the veins of the bilateral lower extremities. FINDINGS: Respiratory variation, normal compression and augmented flow are noted throughout the lower extremities. The visualized common femoral vein, superficial femoral vein, profunda femoral vein, popliteal vein and midcalf peroneal and posterior tibial venous segments show no evidence of deep venous thrombosis. There is no Villa's cyst. IMPRESSION: Normal triplex scan without evidence of deep venous thrombosis involving the lower extremities. DICTATED BY: DANIEL VALENCIA MD DATE/TIME DICTATED:04/17/171448 MEMORIAL DESIGNER:LUPE PATIENT: DG ROWELL PRESENT AGE: 82 PATIENT ACCOUNT NO: [id number] : 34 LOCATION: [facility] ([place]) ORDERING PHYSICIAN: ALEXANDER MCKINNEY SERVICE DATE: 04/17/17 EXAM TYPE: RAD - [id number], RIGHT EXAMINATION: XR TIBIA AND FIBULA, RIGHT CLINICAL INFORMATION: Right lateral contusion. COMPARISON: None TECHNIQUE: AP and lateral views of the right tibia and fibula were obtained. FINDINGS: Bone mineral density is maintained without evidence of fracture or dislocation. No focal osseous lesions are seen. 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 No joint effusion is identified in the knee or ankle. There is moderate circumferential soft tissue prominence greatest laterally without evidence of underlying radiopaque foreign bodies. IMPRESSION: No fracture or foreign bodies. DICTATED BY: BENNY JAMA MD DATE/TIME DICTATED:04/17/171336 MEMORIAL DESIGNER:LUPE (ALEXANDER BRIONES) Departure Departure Disposition: HOME OR SELF CARE Condition: Stable Clinical Impression Primary Impression: Fall Secondary Impressions: Leg hematoma, Leg swelling Referrals: KINA LUIS MD (PCP/Family) Additional Instructions: As discussed BEGIN ICING THE area of the right lower leg for swelling. Begin using the Chris wrap for swelling. Began to elevate your feet for swelling. Follow up with her primary care doctor in 2 days if no better. If symptoms worsen return to emergency room Departure Forms: Customer Survey General Discharge Information (ALEXANDER BRIONES) PA/CNMT Co-Sign Statement Statement: ED Attending supervision documentation- [X] I saw and evaluated the patient. I have also reviewed all the pertinent lab results and diagnostic results. I agree with the findings and the plan of care as documented in the PA's/CNMT's documentation. [X] I have reviewed the ED Record and agree with the PA's/CNMT's documentation. [] Additions or exceptions (if any) to the PAs/CNMT's note and plan are summarized below: [] (CECELIA GUTIERREZ,RANDAL)
--- NOTE | 2017-04-17 13:43 | RADIOLOGY REPORT ---
EXAMINATION: XR TIBIA AND FIBULA, RIGHT CLINICAL INFORMATION: Right lateral contusion. COMPARISON: None TECHNIQUE: AP and lateral views of the right tibia and fibula were obtained. FINDINGS: Bone mineral density is maintained without evidence of fracture or dislocation. No focal osseous lesions are seen. 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 No joint effusion is identified in the knee or ankle. There is moderate circumferential soft tissue prominence greatest laterally without evidence of underlying radiopaque foreign bodies. IMPRESSION: No fracture or foreign bodies.
--- NOTE | 2017-04-17 14:54 | ULTRASOUND REPORT ---
EXAMINATION: US TRIPLEX OF LOWER EXTREMITIES, BILATERAL CLINICAL INFORMATION: Bilateral leg swelling. History of right hip surgery 03/27/2017 COMPARISON: None TECHNIQUE: Color-flow triplex imaging with spectral analysis and compression Doppler were performed on the veins of the bilateral lower extremities. FINDINGS: Respiratory variation, normal compression and augmented flow are noted throughout the lower extremities. The visualized common femoral vein, superficial femoral vein, profunda femoral vein, popliteal vein and midcalf peroneal and posterior tibial venous segments show no evidence of deep venous thrombosis. There is no Villa's cyst. IMPRESSION: Normal triplex scan without evidence of deep venous thrombosis involving the lower extremities.
[2017-04-17 15:00] VITALS: BP 122/59
== END 2017-04-17 16:10 ==
LOC: ERH 12:25
DX: S80.11XA Contusion of right lower leg, initial encounter (principal); M79.89 Other specified soft tissue disorders; W19.XXXA Unspecified fall, initial encounter; Y92.9 Unspecified place or not applicable; Y93.9 Activity, unspecified
CPT/HCPCS: 73590-RT; 93970